=== PATIENT | male | born 1975 | race Caucasian/White ===

== ENCOUNTER 2023-04-25 18:26 | Emergency (ER) | payer MEDICAID ==
[~2023-04-25] VITALS: Ht 175.3 cm; Wt 81.0 kg
[2023-04-25 18:33] VITALS: BP 147/101; TEMP 98.5; O2SAT 100
[2023-04-25 18:38] VITALS: PULSE 64; RESP 16
[2023-04-25 19:56] LABS: BASOPHILS % 0.4 % (0.0-2.0); EOSINOPHILS % 5.3 % (0.0-5.0); HEMATOCRIT. 42.4 % (42.0-52.0); HEMOGLOBIN. 14.7 g/dL (14.0-18.0); LYMPHOCYTES % 26.8 % (20.0-50.0); MEAN CORPUSCULAR HEMOGLOBIN 29.6 pg (28.0-32.0); MEAN CORPUSCULAR HGB CONC 34.6 g/dL (31.0-37.0); MEAN CORPUSCULAR VOLUME 85.4 fL (80.0-94.0); MEAN PLATELET VOLUME 7.4 fl (7.4-10.4); MONOCYTES % 7.2 % (2.0-8.0); NEUTROPHILS % 60.3 % (40.0-76.0); PLATELET 270 x1000/uL (130-400); RED BLOOD CELL COUNT 4.96 mill/uL (4.7-6.1); RED CELL DISTRIBUTION WIDTH 12.8 % (11.6-14.6); WHITE BLOOD COUNT 10.5 x1000/uL (4.5-11.0)
[2023-04-25 20:05] LABS: CHLORIDE 113 mEq/L (98-107); INDEX HEMOLYSI 2 (1-3); INDEX ICTERIC 1 (1-4); INDEX LIPEMIC 1 (1-3); POTASSIUM 3.4 mEq/L (3.5-5.1); SODIUM 141 mEq/L (136-145)
[2023-04-25 20:18] LABS: ALANINE AMINOTRANSFERASE 35 IU/L (13-61); ALBUMIN 3.7 g/dL (3.4-5.0); ASPARTATE AMINOTRANSFERASE 21 IU/L (15-37); BILIRUBIN TOTAL 0.5 mg/dL (0.1-1.0); CALCIUM 8.9 mg/dL (8.5-10.1); CARBON DIOXIDE 24 mEq/L (21-32); GLUCOSE 110 mg/dL (70-105); PROTEIN TOTAL 7.1 g/dL (6.0-8.3); TROPONIN I HIGH SENSITIVITY 6 ng/L (<78); UREA NITROGEN BLOOD 21 mg/dL (7-21)
== END 2023-04-25 21:34 | disposition home or self-care (01) ==
LOC: ER 18:26
DX: R42 Dizziness and giddiness (principal); R53.1 Weakness; R53.83 Other fatigue; I10 Essential (primary) hypertension
CPT/HCPCS: 36415; 71045; 80053; 84484; 85025; 93005; 99285